=== PATIENT | female | born 1945 | race Caucasian/White ===

== ENCOUNTER 2018-01-19 16:56 | Emergency (ER) | payer OTHER ==
[~2018-01-19] VITALS: Ht 149.9 cm; Wt 68.0 kg
[2018-01-19] MEDS ORDERED: ATENOLOL25 GM (17:20)
[2018-01-19] MEDS ORDERED: METFORMIN HYDRO25 G1 (17:20)
[2018-01-19] MEDS ORDERED: LISINOPRIL2.5 MG (17:21)
[2018-01-19] MEDS ORDERED: OCUVITE SOFTGE1 EACH (17:21)
[2018-01-19] MEDS ORDERED: ATORVASTATIN CA10 MG (17:21)
[2018-01-19] MEDS ORDERED: ESCITALOPRAM OXA5 MG (17:21)
[2018-01-19] MEDS ORDERED: ASPIRIN1 GM (17:22)
[2018-01-19] MEDS ORDERED: ESSENTIAL DAIL1 EACH (17:22)
== END 2018-01-19 21:33 | disposition home or self-care (01) ==
LOC: ER 16:56
DX: R51 Headache (principal); E86.0 Dehydration